=== PATIENT | female | born 1990 | race Caucasian/White ===

== ENCOUNTER 2016-12-10 18:10 | Emergency (ER) | payer OTHER ==
[~2016-12-10] VITALS: Ht 167.6 cm; Wt 63.5 kg
[2016-12-10] MEDS ORDERED: XYZAL5 M1 PO (18:51)
[2016-12-10] MEDS ORDERED: SINGULAIR10 M1 PO (18:51)
[2016-12-10] MEDS ORDERED: MULTI-DAY VITA1 EACH PO (18:52)
[2016-12-10] MEDS ORDERED: AUGMENTIN 875-1 EACH PO (19:02)
--- NOTE | 2016-12-10 19:03 | ED ANIMAL BITE/WOUND CHECK ---
History of Present Illness General Chief Complaint: Animal/Insect Bite Stated Complaint: BITE TO BOTTOCKS FROM DOG Source: patient Exam Limitations: no limitations Vital Signs & Intake/Output Vital Signs & Intake/Output Vital Signs Date Time Temp Pulse Resp B/P B/P Pulse O2 O2 Flow FiO2 Mean Ox Delivery Rate 12/10 1926 98.2 82 18 128/78 96 12/10 1821 98.6 88 18 139/98 98 Room Air Allergies Coded Allergies: No Known Allergies (12/10/16) Reconcile Medications Amoxicillin/Potassium Clav (Augmentin 875-125 Tablet) 875 MG-125 MG TABLET 1 TAB PO BID DOG BITE Levocetirizine Dihydrochloride (Xyzal) 5 MG TABLET 1 TAB PO DAILY ALLERGIES ( Reported) Montelukast Sodium (Singulair) 10 MG TABLET 1 TAB PO DAILY ALLERGIES ( Reported) Multivitamin (Multi-Day Vitamins) 1 EACH TABLET 1 TAB PO DAILY SUPPLEMENT ( Reported) Triage Note: 26 YO FEMALE TO TRIAGE C/O DOG BITE TO L SIDE OF BUTTOCKS. STATES SHE WAS OUT RUNNING AND AN UNKNOWN DOWN BITE HER. STATES AREA IS BLEEDING. AREA UNABLE TO VISUALIZE IN TRIAGE Triage Nurses Notes Reviewed? yes Onset: Abrupt Duration: hour(s):, constant, continues in ED Timing: recent history Is Injury an Animal Bite? Yes Animal Type: dog Appearance of Animal: appeared well No Modifying Factors: none : No Patient currently breastfeeds: No HPI: 26-year-old female comes into emergency room for further evaluation after being bitten by a dog on her left buttocks. Patient reports that she was jogging and a neighbor's dog chased her and bit her on the rear end. They approached the owners of the dog. The owners reported that the dog was up-to-date on its rabies vaccine. Patient is confident that she is up-to-date on her tetanus shot. She went to college and they need a tetanus booster at age 20. Denies any injury anywhere else. Denies any other associated symptoms. Sharp throbbing pain. Continuous. Nonradiating. Past History Travel History Traveled to [place] past 21 day No Medical History Any Pertinent Medical History? 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 No Review of Systems Review of Systems Constitutional: Reports: see HPI. EENTM: Reports: no symptoms. Respiratory: Reports: no symptoms. Cardiovascular: Reports: no symptoms. GI: Reports: no symptoms. Genitourinary: Reports: no symptoms. Musculoskeletal: Reports: see HPI. Skin: Reports: see HPI. Neurological/Psychological: Reports: no symptoms. Hematologic/Endocrine: Reports: no symptoms. Immunologic/Allergic: Reports: no symptoms. All Other Systems: Reviewed and Negative Physical Exam Physical Exam General Appearance: well developed/nourished, mild distress Head: atraumatic Eyes: Bilateral: normal appearance. Ears, Nose, Throat: normal ENT inspection, hearing grossly normal Neck: normal inspection Respiratory: no respiratory distress Back: normal inspection, small punctures to left buttocks, superifical abrasion, nothing suturable Extremities: normal range of motion Neurologic/Psych: awake, alert, oriented x 3, normal mood/affect Skin: intact, normal color, warm/dry Lymphatic: no anterior cervical jessica Progress Differential Diagnosis: abscess, cellulitis, joint infection, tenosysnovitis Plan of Care: Patient and family were told to confirm that the dog's rabies vaccine is up-to- date. Get documentation tomorrow from [facility]. Watch for signs of infection such as redness on discharge fever chills. Take antibiotics as prescribed. Warm soaks over the area. Nothing to suture on exam. Departure Departure Disposition: HOME OR SELF CARE Condition: Stable Clinical Impression Primary Impression: Dog bite of left buttock Referrals: GÓMEZ READ,JESSICA Bhakta (PCP/Family) Additional Instructions: Take Augmentin as prescribed. Keep covered with bacitracin. Warm compresses. Watch for signs of infection such as redness or discharge fever chills. Return if any other concerns worsening symptoms. Please go over all results of today's visit with your primary care doctor. Contact your primary care doctor to let them know you were here in the emergency room. There may be nonspecific findings which may not be related to your visit today here in the emergency room but may require further evaluation and chronic monitoring by your primary care doctor. If you had a laceration today the chance of foreign body always remains. You should follow-up with your primary care doctor for recheck in 3-5 days for a wound check. If you had an x-ray done there is a chance that a fracture could have been missed on initial read and you should follow-up with your primary care doctor for repeat x-rays if symptoms persist. If your blood pressure was elevated here in the emergency room please have rechecked by her primary care doctor within the next 48 hours by your primary care doctor. If you were prescribed a narcotic here in the emergency room or any type of controlled substances you're not allowed to drive while taking this medication or operate any type of heavy machinery. Narcotics can make you feel lightheaded dizziness nausea and can cause constipation. 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 Thank you for choosing [facility] emergency room. Please return to the emergency room immediately if you have any other concerns worsening of symptoms. Departure Forms: Customer Survey General Discharge Information Prescriptions: Current Visit Scripts Amoxicillin/Potassium Clav (Augmentin 875-125 Tablet) 1 TAB PO BID #14 TAB
[2016-12-10 19:27] VITALS: BP 128/78
== END 2016-12-10 19:30 ==
LOC: ERH 18:10
DX: S31.825A Open bite of left buttock, initial encounter (principal); W54.0XXA Bitten by dog, initial encounter; Y93.9 Activity, unspecified; Y92.9 Unspecified place or not applicable